=== PATIENT | female | born 1995 | race Caucasian/White ===

== ENCOUNTER 2019-12-20 14:30 | Outpatient (CLI) | payer SELFPAY | END 2019-12-20 14:31 | disposition home or self-care (01) | LOC: COV 14:30 | PROVIDERS: ATTEND Family Medicine | DX: R05 Cough (principal); R53.83 Other fatigue; J02.9 Acute pharyngitis, unspecified; R19.7 Diarrhea, unspecified; R09.81 Nasal congestion; Z20.828 Contact with and (suspected) exposure to other viral communicable diseases ==

== ENCOUNTER 2020-05-03 21:18 | Emergency (ER) | payer OTHER ==
--- NOTE | 2020-05-03 21:38 | ED Physician Documentation ---
PD HPI ABD PAIN - Stated complaint Stated Complaint: ABD PX - Chief complaint Chief Complaint: Abd Pain - History obtained from History obtained from: Patient - History of Present Illness Timing - onset: Today (this morning) Timing - details: Gradual onset Pain level now: 7 Quality: Pain Location: RLQ Improved by: Other (no ameliorating factors) Worsened by: Palpation Associated symptoms: No: Fever, Nausea, Vomiting, Diarrhea, Constipation Similar symptoms before: Diagnosis (similar to pain associated with PCOS/ovarian cyst) Recently seen: Not recently seen - Additional information Additional information: patient c/o right lower quadrant/right anterior hemipelvic pain since waking up this morning. no relief with ibuprofen. pain is constant, worse with palpation. she feels that this is similar to previous episode of ovarian cyst, although she says it has been a few years since she had this pain. 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 Review of Systems Constitutional: denies: Fever, Chills, Sweats GI: reports: Abdominal Pain. denies: Nausea, Vomiting, Constipation, Diarrhea : reports: Other (does not think she is but says it is possible). denies: Dysuria, Frequency, Hematuria PD PAST MEDICAL HISTORY - Past Medical History Cardiovascular: None Respiratory: None Endocrine/Autoimmune: None GI: Other EMERGENCY MEDICAL TECHNICIAN BASIC: Ovarian cysts : None HEENT: None Psych: None Musculoskeletal: None Derm: None - Past Surgical History Past Surgical History: Yes HEENT: Tonsil/Adenoidectomy - Present Medications Home Medications: Ambulatory Orders Medication Instructions Recorded Confirmed Norethindrone-Ethinyl Estrad 1 tab PO DAILY 01/08/14 05/03/20 [Norinyl 1+35-28 Tablet] HYDROcod/ACETAM 5/325 [Lillian 5/325] 1 - 2 ea PO Q6H PRN #15 05/03/20 - Allergies Allergies/Adverse Reactions: Allergies Allergy/AdvReac Type Severity Reaction Status Date / Time nickel [Nickel] AdvReac Itching Verified 05/03/20 21:26 - Social History Does the pt smoke?: No Smoking Status: Never smoker Does the pt drink ETOH?: No Does the pt have substance abuse?: No - Immunizations Immunizations are current?: Yes - POLST Patient has POLST: No PD ED PE NORMAL - Vitals Vital signs reviewed: Yes - General General: Alert and oriented X 3, No acute distress, Well developed/nourished - Cardiac Cardiac: RRR, No murmur - Respiratory Respiratory: No respiratory distress, Clear bilaterally - Abdomen Abdomen: Soft, Non distended, Other (mild TTP RLQ without rebound or guarding) - Back Back: No CVA TTP Results - Vitals Vitals: Vital Signs - 24 hr 05/03/20 05/03/20 05/04/20 21:26 22:58 00:08 Temperature 36.6 C 36.8 C 36.7 C Heart Rate 110 H 110 H 105 H Respiratory 16 18 16 Rate Blood Pressure 140/76 H 144/80 H 140/86 H O2 Saturation 99 100 99 Oxygen O2 Source Room air - Labs Labs: Laboratory Tests 05/03/20 05/03/20 05/03/20 21:22 21:22 22:05 WBC 9.2 RBC 4.50 Hgb 13.2 Hct 40.2 MCV 89.3 MCH 29.3 MCHC 32.8 RDW 12.2 Plt Count 345 MPV 8.9 Neut # (Auto) 6.0 Lymph # (Auto) 2.3 Ceiba # (Auto) 0.6 Eos # (Auto) 0.2 Baso # (Auto) 0.0 Absolute Nucleated RBC 0.00 Nucleated RBC % 0.0 Sodium Potassium Chloride Carbon Dioxide Anion Gap BUN Creatinine Estimated GFR (MDRD) Glucose Calcium Total Bilirubin AST ALT Alkaline Phosphatase Total Protein Albumin Globulin Albumin/Globulin Ratio Lipase Urine Color YELLOW Urine Clarity CLEAR Urine pH 6.0 Ur Specific [place] 1.010 Urine Protein NEGATIVE Urine Glucose (UA) NEGATIVE Urine Ketones NEGATIVE Urine Occult Blood NEGATIVE Urine Nitrite NEGATIVE Urine Bilirubin NEGATIVE Urine Urobilinogen 0.2 (NORMAL) Ur Leukocyte Esterase NEGATIVE Ur Microscopic Review NOT INDICATED Urine Culture Comments NOT INDICATED Urine HCG, Qual NEGATIVE 05/03/20 22:05 WBC RBC Hgb Hct MCV MCH MCHC RDW Plt Count MPV Neut # (Auto) Lymph # (Auto) Ceiba # (Auto) Eos # (Auto) Baso # (Auto) Absolute Nucleated RBC Nucleated RBC % Sodium 139 Potassium 3.8 Chloride 101 Carbon Dioxide 26 Anion Gap 12.0 BUN 13 Creatinine 0.6 Estimated GFR (MDRD) 124 Glucose 102 H Calcium 9.5 Total Bilirubin 0.4 AST 24 ALT 30 Alkaline Phosphatase 86 Total Protein 7.4 Albumin 4.2 Globulin 3.2 Albumin/Globulin Ratio 1.3 Lipase 34 Urine Color Urine Clarity Urine pH Ur Specific [place] Urine Protein Urine Glucose (UA) Urine Ketones Urine Occult Blood Urine Nitrite Urine Bilirubin Urine Urobilinogen Ur Leukocyte Esterase Ur Microscopic Review Urine Culture Comments Urine HCG, Qual - Rads (name of study) CT A/P with IV contrast Radiology: Prelim report reviewed, See rad report PD MEDICAL DECISION MAKING - ED course Complexity details: reviewed results, re-evaluated patient, considered differential, d/w patient ED course: it is not clear if patient has been confidently diagnosed with PCOS. she has only had 2 previous [facility] ED visits, one each in 2013 and 2014. The 2014 visit involved a large right-sided ovarian cyst. CT A/P shows right sided ovarian cyst, 2.8 x 3.5 cm without evidence of rupture. Reassuring blood tests and hcg negative. She is comfortable with d/c home after we discussed results of tonight's tests. She is given vicodin in ED , rx for same, and work note x 2 days. Departure - Departure Disposition: 01 Home, Self Care Clinical Impression: Ovarian cyst Qualifiers: Laterality: right Qualified Code(s): N83.201 - Unspecified ovarian cyst, right side Condition: Good Instructions: ED Cyst Ovarian Follow-Up: Danny Jeffrey DO [Primary Care Provider] - Prescriptions: HYDROcod/ACETAM 5/325 [Lillian 5/325] 1 - 2 ea PO Q6H PRN #15 PRN Reason: Pain Forms: Activity restrictions Discharge Date/Time: 05/04/20 00:08
[2020-05-03 21:50] LABS: BILIRUBIN,URINE NEGATIVE (NEGATIVE); GLUCOSE, URINE (UA) NEGATIVE (NEGATIVE); KETONES,URINE (UA) NEGATIVE (NEGATIVE); LEUKOCYTE ESTERASE, URINE NEGATIVE (NEGATIVE); NITRITE,URINE NEGATIVE (NEGATIVE); OCCULT BLOOD,URINE NEGATIVE (NEGATIVE); PROTEIN,URINE NEGATIVE (NEGATIVE); UROBILINOGEN,URINE 0.2 (NORMAL) E.U./dL (NORMAL)
[2020-05-03 21:51] LABS: CLARITY,URINE CLEAR (CLEAR); HCG UR QUAL NEGATIVE
[2020-05-03 22:12] LABS: BASOPHILS % (AUTO) 0.3 %; EOSINOPHILS # (AUTO) 0.2 10^3/uL (0.0-0.7); HGB - HEMOGLOBIN 13.2 g/dL (12.0-16.0); LYMPHOCYTES # (AUTO) 2.3 10^3/uL (1.5-3.5); LYMPHOCYTES % (AUTO) 25.4 %; MEAN CORPUSCULAR HEMOGLOBIN 29.3 pg (27.0-31.0); MEAN CORPUSCULAR HGB CONC 32.8 g/dL (32.0-36.0); MEAN CORPUSCULAR VOLUME 89.3 fL (81.0-99.0); MEAN PLATELET VOLUME 8.9 fL (7.9-10.8); MONOCYTES # (AUTO) 0.6 10^3/uL (0.0-1.0); NEUTROPHILS % (AUTO) 65.9 %; PLT - PLATELET COUNT 345 10^3/uL (130-450); RED CELL DISTRIBUTION WIDTH 12.2 % (12.0-15.0); WHITE BLOOD COUNT 9.2 x10^3/uL (4.8-10.8)
[2020-05-03] MEDS ORDERED: IOVERSOL 320 100 ML VIAL IVP ONE ×2 (22:26→22:57)
[2020-05-03 22:30] LABS: ALBUMIN 4.2 g/dL (3.2-5.5); ALBUMIN/GLOBULIN RATIO 1.3 (1.0-2.2); BILIRUBIN,TOTAL 0.4 mg/dL (0.2-1.0); CALCIUM 9.5 mg/dL (8.5-10.3); CREATININE 0.6 mg/dL (0.4-1.0); TOTAL PROTEIN 7.4 g/dL (6.7-8.2)
[2020-05-03] MEDS ORDERED: HYDROcod/ACETAM 5/325 MG TABLET PO STA (23:58)
[2020-05-04 00:11] VITALS: BP 140/86
--- NOTE | 2020-05-04 07:20 | CT Report ---
PROCEDURE: Abdomen/Pelvis W INDICATIONS: RLQ pain CONTRAST: IV CONTRAST: Optiray 320 ml: 100 PO CONTRAST: *NO PO CONTRAST TECHNIQUE: After the administration of intravenous contrast, 5 mm thick sections acquired from the diaphragms to the symphysis. 5 mm thick coronal and sagittal reformats were acquired. For radiation dose reducti on, the following was used: automated exposure control, adjustment of mA and/or kV according to ada ent size. COMPARISON: 01/08/2014. FINDINGS: Image quality: Excellent. ABDOMEN: Lung bases: Lung bases are clear. Heart size is normal. Solid organs: Liver and spleen are normal in size and enhancement. Gallbladder is contracted, but w ithin normal limits Biliary system is non dilated. Pancreas enhances normally. No adrenal nodules. Kidneys demonstrate normal size and enhancement, without hydronephrosis. Peritoneum and bowel: Bowel loops demonstrate normal wall thickness and caliber. No free air. Trace free fluid in the cul-de-sac the pelvis which is within physiologic limits. Appendix is normal Nodes and vessels: No retroperitoneal or mesenteric adenopathy by size criteria. Aorta and inferior vena cava are normal in size. Miscellaneous: No ventral hernias. PELVIS: Genitourinary: Bladder wall thickness is normal. Small bilateral ovarian functional follicles. Miscellaneous: No inguinal hernias or adenopathy. Bones: No suspicious bony lesions. No vertebral body compression fractures. Trace L5-S1 isthmic spo ndylolisthesis. IMPRESSION: 1. Appendix is normal. 2. Trace free fluid which is within physiologic limits. No free peritoneal air. 3. No dilated loops of bowel. Reviewed by: Ria Shahid MD, PhD on 05/04/2020 7:19 AM PST Approved by: Ria Shahid MD, PhD on 05/04/2020 7:19 AM PST Station ID: [id number]
== END 2020-05-04 00:08 | disposition home or self-care (01) ==
LOC: ED 21:18
DX: N83.201 Unspecified ovarian cyst, right side (principal)
CPT/HCPCS: 36415; 74177; 80053; 81003; 81025; 83690; 85025; 99284; A9270; Q9967; 81001; 87086